=== PATIENT | female | born 1945 | race African-American/Black ===

== ENCOUNTER 2017-10-19 09:47 | Observation (INO) | payer MEDICARE ==
[2017-10-19 10:14] LABS: #Lymphocytes 1.2 thou/uL (1.20-3.40); #Monocytes 0.4 thou/uL (0.11-0.59); #Neutrophils 4.8 thou/uL (1.40-6.50); %Eosinophils 0.1 % (0.0-10.0); %Monocytes 6.7 % (0.0-10.0); %Neutrophils 74.2 % (42.0-75.0); Hemoglobin 12.1 g/dL (12.0-16.0); Mean Corpuscular HGB CONC 32.6 g/dL (32.0-36.0); Mean Corpuscular Hemoglobin 29.3 pg (27.0-31.0); Mean Platelet Volume 7.8 fL (7.4-10.4); Platelet Count 187 thou/uL (130-400); RBC Distribution Width 13.6 % (11.5-14.5); Red Blood Cell (RBC) Count 4.13 mill/uL (4.20-5.40); White Blood Cell (WBC) Count 6.5 thou/uL (4.8-10.8)
[2017-10-19] MEDS ORDERED: Nitroglycerin 2% Ointment 1 INCH/1 GM Packet ONE (10:19)
[2017-10-19 10:37] LABS: ALT (SGPT) 10 U/L (8-55); AST (SGOT) 16 U/L (5-34); Albumin 3.6 g/dL (3.4-4.8); Alkaline Phosphatase 99 U/L (40-150); Anion Gap 14 mmol/L (10-20); BUN (Urea Nitrogen) 10 mg/dL (9.8-20.1); Bilirubin, Total 0.5 mg/dL (0.2-1.2); CK (CPK) 45 U/L (29-168); Calc. Creatinine Clearance 0 mL/min (70-130); Calcium 8.9 mg/dL (7.8-10.44); Carbon Dioxide 29 mmol/L (23-31); Chloride 100 mmol/L (98-107); Estimated GFR-MDRD 78; Globulin 3.9 g/dL (2.4-3.5); Glucose 98 mg/dL (83-110); Lipase 17 U/L (8-78); Potassium 4.2 mmol/L (3.5-5.1); Protein, Total 7.5 g/dL (6.0-8.3); Sodium 139 mmol/L (136-145)
[2017-10-19 10:40] LABS: CKMB 0.8 ng/mL (0-6.6); Troponin I Less than 0.010 ng/mL (< 0.028)
[2017-10-19] MEDS ORDERED: Labetalol HCl 100 MG/20 ML VIAL ONE (11:35)
--- NOTE | 2017-10-19 12:08 | RAD ---
PORTABLE CHEST 1 VIEW: DATE: 10/19/17. TIME: 9:33 p.m. HISTORY: Chest pain and shortness of breath. FINDINGS: Comparison is made with the exam of 07/29/08. The heart is enlarged. No lobar consolidation, pneumothoraces, jody pulmonary edema, or large effus ions are seen. POS: H
[2017-10-19] MEDS ORDERED: Ondansetron HCl/PF 4 MG/2 ML Vial IVP PRN (13:13)
[2017-10-19] MEDS ORDERED: Ondansetron ODT 4 MG TAB SL PRN (13:13)
[2017-10-19 13:29] VITALS: BMI 47.7
[2017-10-19 14:06] LABS: Troponin I Less than 0.010 ng/mL (< 0.028)
[2017-10-19 16:36] LABS: Troponin I Less than 0.010 ng/mL (< 0.028)
[2017-10-19] MEDS: Acetaminophen 325 MG TAB PO PRN (16:54)
[2017-10-19] MEDS: Ibuprofen 800 MG TAB PO SCH (20:19)
[2017-10-19] MEDS: Potassium Chloride 10 MEQ TAB PO SCH (20:19)
[2017-10-19] MEDS ORDERED: Citalopram 20 MG TAB PO SCH (20:45)
[2017-10-19] MEDS ORDERED: Amitriptyline HCl 25 MG TAB PO SCH (21:00)
[2017-10-19] MEDS ORDERED: Prevnar 13-Val Conj/PF 0.5 ML SYRINGE IM ONE (21:00)
--- NOTE | 2017-10-19 21:07 | HP ---
CHIEF COMPLAINT: Chest pain. HISTORY OF PRESENT ILLNESS: This patient is a 71-year-old female who reports that for the last 2 we, she has been having worsening dyspnea on exertion which is now manifest if she does walk from one room to another. She also reports that even with minimal cough, she will also have significant dysp saeed. Associated with this, she has some stabbing chest pain in the center of her chest. She denies any radiation of the pain and believes that she is actually tender in chest wall. She denies any ass ociated nausea, in general, but reports a couple of times she did have nausea. She denies any lighth eadedness or associated palpitations. The patient was to see Dr. Dawson at [facility] on , but felt like she could not wait that long, so she presented to the emergency department here. In the ED, the patient's blood pressure was somewhat elevated. When she received nitroglycerin, her blood pressure came down and her symptoms were relieved. Of note, the patient reports that she had a similar situation couple of years ago and in 2015, she vargas d a heart catheterization performed in [place] and was told that it was completely negative. In fac t, she says the doctor told her children that if she were to that it would not be from her heart. REVIEW OF SYSTEMS: Notable for poor sleep in general, but the patient is better taking the amitripty line. She also reports a 50-pound weight gain in the last 4 months. She is not sure why that has oc curred. She also reports that she has loose stools 20-30 minutes after meals for the last 4 years or so. She has some chronic osteoarthritis pain mostly in her hips. She also reports some depression since February since she retired because she is mostly worried about money. She also indicates that s he has some mild bilateral abdominal pain, but she points toward her pannus area. Other than that, a 10-system review is negative. PAST MEDICAL HISTORY: Notable for osteoarthritis and hypertension. She also appears to have hypothy roidism based on her medication list. She also states she recently saw an eye doctor and was told th at he believes she has glaucoma and cataracts. PAST SURGICAL HISTORY: The patient had some type of abdominal surgery, but she is not exactly sure w hat. She states they had to "rebuild her organs" sounds like the colon was involved, but she says th ere was no resection. She also reports that she had a lap band placed in 2004, but it was not helpin g, and she had it removed in 2016. SOCIAL HISTORY: Patient is a nonsmoker, nondrinker, nondrug user. She is not . She currentl y lives with her daughter. Her daughter, Yamilka Conde would be her surrogate decision maker should that become necessary and she is a FULL CODE. FAMILY HISTORY: Father had emphysema. Mother of "old age." PHYSICAL EXAMINATION: VITAL SIGNS: Temperature 98.2, pulse 62, respirations 20, O2 sat 95% on 2 liters nasal cannula, BP i s 131/83. GENERAL APPEARANCE: Morbidly obese female. She is age appropriate. She is in no distress, very ple asant and cooperative. HEENT: PERRL. No OP lesions. NECK: Supple and symmetric without lymphadenopathy. HEART: Difficult to auscultation, but is regular rate and rhythm without murmurs. LUNGS: Somewhat difficult to auscultate. There are no wheezes, rales or crackles noted. She has fa ir air exchange. She does appear to take a bit more shallow breaths. ABDOMEN: Morbidly obese, soft, nontender, nondistended, positive bowel sounds. No masses, no organo megaly. EXTREMITIES: Have no edema. SKIN: Warm and dry. MUSCULOSKELETAL: This reveals very mild tenderness to palpation over the sternal area. LABORATORY AND DIAGNOSTIC STUDIES: EKG shows sinus rhythm with no evidence of ischemia. Chest x-ray shows mild cardiomegaly, but otherwise unremarkable. White count 6.5, hemoglobin 12.1, platelets 18 7. CMP is normal. IMPRESSION AND PLAN: 1. Dyspnea on exertion. 2. Chest pain. 3. Morbid obesity. 4. Hypertension. 5. Hypothyroidism. PLAN: The patient will be placed in observation. She will continue on telemetry. We will get latasha issa cardiac isoenzymes. I will also obtain an echocardiogram. I am not inclined to pursue a stress te sting. She apparently had a completely normal heart catheterization a couple of years ago. A little bit of cardiomegaly certainly would indicate the echocardiogram and based on the results of that salo issa determine further plan, but hopeful that if we can simply maintain the patient's blood pressure dwight quately, that will keep her symptoms controlled and she can follow up as an outpatient. We will also continue with her usual home medication regimen including her thyroid supplementation.
[2017-10-20] MEDS: Acetaminophen 325 MG TAB PO PRN (00:35)
[2017-10-20] MEDS ORDERED: HYDROcodone/Acetaminophen 10/325 mg Tablet PO PRN (01:00)
[2017-10-20] MEDS: Ibuprofen 800 MG TAB PO SCH ×2 (05:20→13:13)
[2017-10-20] MEDS ORDERED: Levothyroxine Sodium 112 MCG TAB PO SCH (06:00)
[2017-10-20] MEDS ORDERED: Levothyroxine Sodium 25 MCG TAB PO SCH (06:00)
[2017-10-20] MEDS: Potassium Chloride 10 MEQ TAB PO SCH (08:11)
[2017-10-20] MEDS ORDERED: Aspirin 81 mg Enteric Coated Tablet PO SCH (09:00)
[2017-10-20] MEDS ORDERED: HYDROcodone/Acetaminophen 10/325 mg Tablet PO SCH (09:00)
[2017-10-20] MEDS ORDERED: Non-Formulary Item 1 EACH (Levothyroxine Sodium [Levothyroxine Sodium] 137 MCG) PO SCH (09:00)
[2017-10-20] MEDS ORDERED: Furosemide 20 MG TAB PO SCH (09:00)
[2017-10-20] MEDS ORDERED: Bupropion 150 MG XL TAB PO SCH (09:00)
--- NOTE | 2017-10-20 11:43 | PDOC.PN ---
- Subjective Encounter Start Date: 10/20/17 Encounter Start Time: 11:41 Feels better today. Had a low SaO2 at 87 this morning. She says she had a dx of TANNER in [place]. Had a donated CPAP, but had to return it to the hospital when she moved here. Doesnt have the 180 dollars for the copay to get one. - Objective Resuscitation Status: Resuscitation Status FULL:Full Resuscitation Vital Signs & Weight: Vital Signs (12 hours) Temp Pulse Resp BP Pulse Ox 10/20/17 11:08 95 10/20/17 11:03 87 L 10/20/17 07:55 98.5 F 66 20 140/91 H 93 L 10/20/17 07:43 98.0 F 72 18 10/20/17 05:20 98.0 F 72 18 139/74 93 L 10/20/17 01:03 73 20 95 Weight Weight 287 lb 11.2 oz I&O: 10/19/17 10/20/17 10/21/17 06:59 06:59 06:59 Intake Total 180 360 Output Total 325 300 Balance -145 60 Result Diagrams: 10/19/17 10:03 10/19/17 10:03 Phys Exam - Physical Examination Constitutional: NAD Observed sleeping. Does have apnea. Mobidly obese. Respiratory: no wheezing, no rales, no rhonchi Cardiovascular: RRR, no significant murmur, no rub Gastrointestinal: soft, non-tender, no distention, positive bowel sounds Neurological: non-focal Psychiatric: normal affect Dx/Plan (1) ACUNA (dyspnea on exertion) Code(s): R06.09 - OTHER FORMS OF DYSPNEA Status: Acute (2) Chest pain Code(s): R07.9 - CHEST PAIN, UNSPECIFIED Status: Acute (3) TANNER (obstructive sleep apnea) Code(s): G47.33 - OBSTRUCTIVE SLEEP APNEA (ADULT) (PEDIATRIC) Status: Acute (4) Morbid obesity Code(s): E66.01 - MORBID (SEVERE) OBESITY DUE TO EXCESS CALORIES Status: Acute (5) Hypertension Code(s): I10 - ESSENTIAL (PRIMARY) HYPERTENSION Status: Acute (6) Hypothyroid Code(s): E03.9 - HYPOTHYROIDISM, UNSPECIFIED Status: Acute - Plan * Feels better. Had neg trops. Awaiting echo. If ok, will DC to have her follow up with Dr. Dawson at [facility]. She will need to discuss TANNER with her.
[2017-10-20 15:32] VITALS: BP 116/72; TEMP 97.8
[2017-10-20] MEDS ORDERED: Citalopram 20 MG TAB PO SCH (21:00)
== END 2017-10-20 17:09 | disposition home or self-care (01) ==
LOC: ERS 09:47 → 2SW 11:20
PROVIDERS: ADMIT Internal Medicine; ATTEND Internal Medicine
DX: R06.09 Other forms of dyspnea (principal); R07.9 Chest pain, unspecified; M19.90 Unspecified osteoarthritis, unspecified site; I10 Essential (primary) hypertension; E03.9 Hypothyroidism, unspecified; E66.01 Morbid (severe) obesity due to excess calories; Z68.42 Body mass index [BMI] 45.0-49.9, adult; Z79.82 Long term (current) use of aspirin; Z79.899 Other long term (current) drug therapy
CPT/HCPCS: 71045; 80053; 82550; 82553; 83690; 83880; 84484 ×2; 85025; 93005; 93306; 94640 ×2; 96374; 99285; G0378 ×2; 36415; J7620

== ENCOUNTER 2018-06-28 12:57 | Inpatient (IN) | payer MEDICARE, OTHER ==
[2018-06-28 14:04] LABS: #Lymphocytes 1.2 thou/uL (1.20-3.40); #Monocytes 0.3 thou/uL (0.11-0.59); #Neutrophils 4.2 thou/uL (1.40-6.50); %Basophils 0.5 % (0.0-1.0); %Eosinophils 0.2 % (0.0-10.0); %Lymphocytes 20.5 % (21.0-51.0); %Monocytes 5.1 % (0.0-10.0); %Neutrophils 73.7 % (42.0-75.0); Hemoglobin 12.6 g/dL (12.0-16.0); Mean Corpuscular HGB CONC 30.7 g/dL (32.0-36.0); Mean Corpuscular Hemoglobin 28.5 pg (27.0-31.0); Mean Corpuscular Volume 93.1 fL (78.0-98.0); Mean Platelet Volume 8.2 fL (7.4-10.4); Platelet Count 216 thou/uL (130-400); RBC Distribution Width 14.9 % (11.5-14.5); Red Blood Cell (RBC) Count 4.41 mill/uL (4.20-5.40); White Blood Cell (WBC) Count 5.7 thou/uL (4.8-10.8)
--- NOTE | 2018-06-28 14:10 | RAD ---
AP view chest. HISTORY: Shortness of breath for 2 days. AP view chest obtained. Comparison made to previous exam from 10/19/2017. AP view chest demonstrates mild pulmonary vascular congestion. Areas of patchy density seen in both lung bases more pronounced on the right than on the left lung ba se. These may represent areas of bibasilar pneumonia. IMPRESSION: Newly developed areas of airspace opacities in the lung bases concerning for pneumonia.
[2018-06-28 14:24] LABS: ALT (SGPT) 10 U/L (8-55); AST (SGOT) 14 U/L (5-34); Albumin 3.5 g/dL (3.4-4.8); Alkaline Phosphatase 80 U/L (40-150); Anion Gap 11 mmol/L (10-20); BUN (Urea Nitrogen) 11 mg/dL (9.8-20.1); Bilirubin, Total 0.4 mg/dL (0.2-1.2); Calc. Creatinine Clearance 0 mL/min (70-130); Calcium 9.9 mg/dL (7.8-10.44); Carbon Dioxide 37 mmol/L (23-31); Chloride 99 mmol/L (98-107); Estimated GFR-MDRD 61; Globulin 3.8 g/dL (2.4-3.5); Glucose 118 mg/dL (83-110); Protein, Total 7.3 g/dL (6.0-8.3); Sodium 143 mmol/L (136-145)
[2018-06-28] MEDS ORDERED: cefTRIAXone\\ROCEPHIN 2 GM VIAL ONE (14:26)
--- NOTE | 2018-06-28 15:44 | CT ---
Contrast-enhanced CTA chest. HISTORY: Shortness of breath worse when walking. Contrast-enhanced CTA chest performed. 2-D and 3-D reconstruction images performed on an independent 3-D workstation. No evidence of filling defects seen in the pulmonary arteries to suggest pulmonary emboli. No evidence of mediastinal, axillary or hilar lymphadenopathy seen. No definite evidence of pulmonary parenchymal lesion seen. IMPRESSION: No evidence of pulmonary emboli.
[2018-06-28] MEDS ORDERED: ISOVUE-370 76%-LOCM 1 ML ONE (16:52)
[2018-06-28] MEDS ORDERED: Azithromycin 500 MG VIAL ONE (17:02)
[2018-06-28 18:09] LABS: Troponin I 0.018 ng/mL (< 0.028)
[2018-06-28] MEDS ORDERED: Acetaminophen 325 MG TAB PO PRN (18:17)
[2018-06-28 18:33] VITALS: BMI 48.4
[2018-06-28 19:21] LABS: Lactic Acid 1.4 mmol/L (0.5-2.2)
--- NOTE | 2018-06-28 21:17 | HP ---
PRIMARY CARE PROVIDER: Dr. Alicia Dawson at [facility]. CHIEF COMPLAINT: Shortness of breath. HISTORY OF PRESENT ILLNESS: This is a 72-year-old female, who presents to [facility] Emergency Department complaining of approximate 2-3 day history of increasing shortness of breath and dyspnea on exertion with dry cough. The patient with a known history of prior pulmonary embolus, on chronic anticoagulation with Eliquis as well as a history of prior oxygen use up to 2 L/minute by nasal cannula recently in the last several months prior to this evaluation. The patient denies any specific fever, chills, exposure history, or family members with similar symptoms. The patient denies any prominent history of seasonal allergies. The patient does admit to a dry cough. No hemoptysis and no chest pain. The patient states she recently relocated from the [facility] where she was using oxygen at home, but states she had to turn the oxygen equipment back in when she moved out of the area. The patient states she has not established with setting up a new home oxygen and presents with worsening shortness of breath. The patient denies taking any specific home remedies, but states she has been compliant with her medication regimen. However, states that she was placed on Eliquis in the last 1-1/2 months, but apparently ran out of the medication about one week prior to this evaluation. The patient admits to some swelling of her lower extremities, but states this is chronic. The patient states that she normally is short of breath when she lays on her back and does sleep propped up on several pillows. In the emergency room, the patient underwent general evaluation including chest imaging showing airspace opacities in the lung bases concerning for possible infiltrate. The patient underwent CT imaging of the chest and was ruled out for pulmonary embolus. The patient received intravenous normal saline x1 L in addition to azithromycin and Rocephin as well as DuoNeb therapy. PAST MEDICAL HISTORY: 1. Morbid obesity. 2. Hypertension. 3. Hypothyroidism. 4. Obstructive sleep apnea. 5. Chronic hypoxic respiratory failure, on previous home oxygen at 2 L/minute by nasal cannula. 6. Pulmonary embolus, on chronic anticoagulation with Eliquis. 7. Osteoarthritis. PAST SURGICAL HISTORY: 1. Status post lap band. 2. Status post colon resection. 3. Status post lap band reversal. 4. Status post carotid surgery. 5. Status post hernia repair. 6. Status post hysterectomy. CURRENT MEDICATIONS: Based on recent hospitalization in 2018. 1. Amitriptyline 25 mg p.o. at bedtime. 2. Enteric-coated aspirin 81 mg p.o. daily. 3. Bupropion 300 mg p.o. daily. 4. Citalopram 40 mg p.o. at bedtime. 5. Nexium 20 mg p.o. daily. 6. Lasix 20 mg p.o. daily. 7. Ibuprofen 800 mg p.o. daily p.r.n. 8. Levothyroxine 137 mcg p.o. daily. 9. Metoprolol succinate 50 mg p.o. b.i.d. 10. Potassium chloride 10 mEq p.o. b.i.d. ALLERGIES: PREGABALIN. FAMILY HISTORY: Father with emphysema. SOCIAL HISTORY: The patient relocated from [place] to the [facility]. No current alcohol, tobacco, or illicit drug use. Single. Resides with her daughter. REVIEW OF SYSTEMS: CONSTITUTIONAL: Negative for weight loss or gain, ability to conduct usual activities. SKIN: Negative for rash, itching. EYES: Negative for double vision, pain. ENT/MOUTH: Negative for nose bleeding, neck stiffness, pain, tenderness. CARDIOVASCULAR: Negative for palpitations, dyspnea on exertion, orthopnea. RESPIRATORY: Negative for shortness of breath, wheezing, cough, hemoptysis, fever or night sweats. GASTROINTESTINAL: Negative for poor appetite, abdominal pain, heartburn, nausea, vomiting, constipation, or diarrhea. GENITOURINARY: Negative for urgency, frequency, dysuria, nocturia. MUSCULOSKELETAL: Negative for pain, swelling. NEUROLOGIC/PSYCHIATRIC: Negative for anxiety, depression. ALLERGY/IMMUNOLOGIC: Negative for skin rash, bleeding tendency. Otherwise, negative except as stated per HPI. PHYSICAL EXAMINATION: VITAL SIGNS: On admission, blood pressure 121/75, pulse 107, respiratory rate 25, temperature 97.9 degrees Fahrenheit, O2 saturation 93% on room air. GENERAL APPEARANCE: This is a 72-year-old female, alert and oriented x3, pleasant, responsive, in no acute distress. HEENT: Pupils are equal, round, reactive to light and accommodation. Extraocular muscles are intact. No scleral icterus. No conjunctival injection. Nares patent. OP is clear. NECK: Supple. No cervical adenopathy. No thyromegaly. No carotid bruits. No JVD appreciated. Cervical spine with full active and passive range of motion. No meningeal signs noted. CHEST: Diminished breath sounds in the bases bilaterally. Expiratory wheezing bilaterally. CARDIOVASCULAR: S1 and S2 with tachycardia. No murmur, rub, or gallop appreciated. ABDOMEN: Obese, soft, nontender, and nondistended. Bowel sounds are positive in all 4 quadrants. No palpable mass. Landmarks are difficult to palpate due to the patient's body habitus. EXTREMITIES: Warm and dry with fair turgor. Pitting edema to the proximal shins bilaterally. Pulses palpable distally at the dorsalis pedis, posterior tibial, and popliteal arteries bilaterally. Capillary refill less than 2 seconds. NEUROLOGIC: Cranial nerves 2 through 12 are grossly intact. No focal or lateralizing signs appreciated. PERTINENT LAB AND X-RAY FINDINGS: Sodium 143, potassium 4.0, chloride 99, CO2 of 37, BUN 11, creatinine 1.06, estimated GFR 61, glucose 118, lactic acid level 2.3, calcium 9.9. LFTs within normal limits. BNP 35.3. CBC showed a white blood cell count of 5.7, hemoglobin 12.6, hematocrit 41, platelet count 216. D-dimer 0.53. Influenza A and B antigen dated 06/28/2018, negative. Portable chest x-ray dated 06/28/[address] angiogram of the chest dated 06/28/2018 showed no evidence for pulmonary embolus. EKG dated 06/28/2018 by my interpretation shows sinus tachycardia, heart rates in the low 100s. Normal R-wave progression noted in precordial leads. Normal axis. No acute ST-T wave changes appreciated. ASSESSMENT AND PLAN: 1. Acute hypoxic respiratory failure. Questionable etiology. Suspect component of obesity hypoventilation syndrome in conjunction with bibasilar pneumonia. Continue oxygen supplementation to maintain O2 saturation greater than or equal to 90%. See #2 below for further management. The patient may need evaluation for home oxygen prior to discharge. 2. Bibasilar pneumonia. Questionable infiltrate on chest imaging. We will continue empiric antibiotic therapy with Levaquin 750 mg IV daily. Add DuoNeb q.4 hours. Blood cultures x2 pending. 3. Pulmonary embolism. Questionable history of pulmonary embolus on previous Eliquis. No current evidence of pulmonary embolus on CT angiogram of the chest. 4. Morbid obesity. We will offer dietary recommendations and low-fat diet during the hospital course. 5. Hypothyroidism. Resume levothyroxine 137 mcg p.o. daily. 6. Prophylaxis. SCDs while in bed. Pepcid 20 mg p.o. b.i.d.. 7. Code status is full. Surrogate medical decision maker is the patient's daughter. Job ID: [id number]
[2018-06-28 22:43] LABS: Troponin I 0.016 ng/mL (< 0.028)
[2018-06-29] MEDS ORDERED: Ondansetron ODT 4 MG TAB PO PRN (03:41)
[2018-06-29] MEDS ORDERED: Benzonatate 100 MG CAP PO PRN (03:41)
[2018-06-29] MEDS ORDERED: Acetaminophen 500 MG TAB PO PRN (03:41)
[2018-06-29] MEDS ORDERED: Ondansetron PF 4 MG/2 ML Vial IVP PRN (03:41)
[2018-06-29] MEDS ORDERED: hydrALAZINE 20 MG/ML VIAL SLOW IVP PRN (03:41)
[2018-06-29] MEDS ORDERED: Famotidine 20 MG TAB PO SCH (04:00)
[2018-06-29] MEDS ORDERED: Amitriptyline HCl 25 MG TAB PO SCH (04:00)
[2018-06-29] MEDS ORDERED: Potassium Chloride 10 MEQ TAB PO SCH (04:00)
[2018-06-29] MEDS ORDERED: Citalopram 20 MG TAB PO SCH (04:00)
[2018-06-29] MEDS: Levothyroxine Sodium 25 MCG TAB PO SCH (05:32)
[2018-06-29] MEDS: Levothyroxine Sodium 112 MCG TAB PO SCH (05:33)
[2018-06-29] MEDS: Aspirin 81 mg Enteric Coated Tablet PO SCH (07:52)
[2018-06-29] MEDS: Furosemide 20 MG TAB PO SCH (07:52)
[2018-06-29] MEDS: Bupropion 150 MG XL TAB PO SCH (07:53)
[2018-06-29] MEDS ORDERED: Non-Formulary Item 1 EACH (Levothyroxine Sodium [Levothyroxine Sodium] 137 MCG) PO SCH (09:00)
[2018-06-29] MEDS: Potassium Chloride 10 MEQ TAB PO SCH (16:29)
--- NOTE | 2018-06-29 18:32 | PDOC.PN ---
- Subjective Encounter Start Date: 06/29/18 Encounter Start Time: 18:30 Subjective: f/u for acute hypoxic resp failure and ?bibasilar PNA on Levaquin. -: Feeling much better today and less SOB. - Objective Resuscitation Status - Order Detail: 06/28/18 16:17 Resuscitation Status Routine Resuscitation Status: FULL: Full Resuscitation MAR Reviewed: Yes Vital Signs & Weight: Vital Signs (12 hours) Temp Pulse Resp BP Pulse Ox 06/29/18 16:05 72 16 06/29/18 11:47 70 16 06/29/18 07:53 100 06/29/18 07:41 97.6 F 73 18 136/83 100 Weight Weight 291 lb 6 oz I&O: 06/28/18 06/29/18 06/30/18 06:59 06:59 06:59 Intake Total 400 Balance 400 Result Diagrams: 06/28/18 13:36 06/28/18 13:36 Additional Labs: Microbiology 06/28/18 14:25 Nasal swab Influenza Types A,B Direct EIA - Final 06/28/18 14:35 Venous blood - Right Arm Blood Culture - Preliminary Specimen has been received and culture in progress. No Growth to date. 06/28/18 14:30 Venous blood - Left Hand Blood Culture - Preliminary Specimen has been received and culture in progress. No Growth to date. Laboratory Tests 06/28/18 06/28/18 06/28/18 13:36 14:35 18:56 Lactic Acid 2.3 H 1.4 B-Natriuretic Peptide 35.3 Radiology Reviewed by me: Yes (PCXR - bibasilar infiltrates) Phys Exam - Physical Examination Constitutional: NAD HEENT: PERRLA, sclera anicteric, oral pharynx no lesions Neck: no nodes, no JVD, supple, full ROM S1, S2 Cardiovascular: RRR, no significant murmur, no rub, gallop Gastrointestinal: soft, non-tender, no distention, positive bowel sounds Musculoskeletal: pulses present, edema present Neurological: normal sensation, moves all 4 limbs Psychiatric: A&O x 3 Skin: normal turgor, cap refill <2 seconds Dx/Plan (1) Acute respiratory failure with hypoxia Code(s): J96.01 - ACUTE RESPIRATORY FAILURE WITH HYPOXIA Status: Acute Comment: Stabilizing on O2 supplementation, will likely need outpt O2 setup for d/c (2) Bilateral pneumonia Code(s): J18.9 - PNEUMONIA, UNSPECIFIED ORGANISM Status: Acute Comment: Suspected given bibasilar infiltrates, continue Levaquin, Duonebs, O2 (3) Hypertension Code(s): I10 - ESSENTIAL (PRIMARY) HYPERTENSION Status: Chronic Qualifiers: Hypertension type: essential hypertension Qualified Code(s): I10 - Essential (primary) hypertension Comment: Continue Metoprolol 50mg BID (4) Hypothyroid Code(s): E03.9 - HYPOTHYROIDISM, UNSPECIFIED Status: Chronic Comment: Continue Levothyroxine 137mcg daily (5) Morbid obesity Code(s): E66.01 - MORBID (SEVERE) OBESITY DUE TO EXCESS CALORIES Status: Chronic Comment: Low-fat diet - Plan continue antibiotics, social media marketing specialist, respiratory therapy, out of bed/ambulate , DVT proph w/SCDs Stable currently -: Continue O2 supplementation, likel will need home O2 -: Consider referral to Pulmonology for outpt evaluation, ?PFT's -: Continue Levaquin -: Likely home 06/30/18 * .
[2018-06-29] MEDS ORDERED: Loperamide HCl 2 MG CAP PO PRN (19:55)
[2018-06-29] MEDS: Amitriptyline HCl 25 MG TAB PO SCH (20:28)
[2018-06-29] MEDS: Famotidine 20 MG TAB PO SCH (20:28)
[2018-06-29] MEDS: Citalopram 20 MG TAB PO SCH (20:28)
[2018-06-30] MEDS: Levothyroxine Sodium 112 MCG TAB PO SCH (05:30)
[2018-06-30] MEDS: Levothyroxine Sodium 25 MCG TAB PO SCH (05:30)
[2018-06-30 06:27] LABS: Hemoglobin 10.1 g/dL (12.0-16.0); Mean Corpuscular HGB CONC 30.9 g/dL (32.0-36.0); Mean Corpuscular Hemoglobin 28.8 pg (27.0-31.0); Mean Platelet Volume 8.1 fL (7.4-10.4); Platelet Count 189 thou/uL (130-400); RBC Distribution Width 14.9 % (11.5-14.5); Red Blood Cell (RBC) Count 3.53 mill/uL (4.20-5.40); White Blood Cell (WBC) Count 7.2 thou/uL (4.8-10.8)
[2018-06-30 06:28] LABS: Hypochromia SLIGHT = 6-15 cells (100X) (0-5/hpf); Lymphocytes 12 % (21-51); MDiff Complete? YES; Monocytes 3 % (0-10); Neutrophil 85 % (42-75); Platelet Morphology Comment Appears Adequate
[2018-06-30 06:43] LABS: Anion Gap 10 mmol/L (10-20); BUN (Urea Nitrogen) 12 mg/dL (9.8-20.1); Calc. Creatinine Clearance 107 mL/min (70-130); Calcium 8.9 mg/dL (7.8-10.44); Carbon Dioxide 32 mmol/L (23-31); Chloride 101 mmol/L (98-107); Estimated GFR-MDRD 69; Glucose 99 mg/dL (83-110); Potassium 4.3 mmol/L (3.5-5.1); Sodium 139 mmol/L (136-145)
[2018-06-30] MEDS: Potassium Chloride 10 MEQ TAB PO SCH ×2 (08:14→17:35)
[2018-06-30] MEDS: Bupropion 150 MG XL TAB PO SCH (08:14)
[2018-06-30] MEDS: Furosemide 20 MG TAB PO SCH (08:14)
[2018-06-30] MEDS: Famotidine 20 MG TAB PO SCH ×2 (08:15→20:25)
[2018-06-30] MEDS: Aspirin 81 mg Enteric Coated Tablet PO SCH (08:15)
--- NOTE | 2018-06-30 11:40 | PDOC.PN ---
- Subjective Encounter Start Date: 06/30/18 Encounter Start Time: 11:30 Subjective: Patient reports feeling better on O2. Hx of PE started on Elliquis over one -: month ago, ran out 1 week ago, hasn't gotten refilled yet. O2 sats ok at -: rest but dropping with ambulation. - Objective Resuscitation Status - Order Detail: 06/28/18 16:17 Resuscitation Status Routine Resuscitation Status: FULL: Full Resuscitation MAR Reviewed: Yes Vital Signs & Weight: Vital Signs (12 hours) Temp Pulse Resp BP Pulse Ox 06/30/18 11:37 71 16 100 06/30/18 08:05 70 18 100 06/30/18 08:00 100 06/30/18 07:00 97.9 F 70 18 112/78 98 Weight Weight 291 lb 6 oz I&O: 06/29/18 06/30/18 07/01/18 06:59 06:59 06:59 Intake Total 400 1180 Balance 400 1180 Result Diagrams: 06/30/18 05:58 06/30/18 05:58 Phys Exam - Physical Examination Constitutional: NAD HEENT: moist MMs Respiratory: no wheezing, no rales, no rhonchi Cardiovascular: RRR Gastrointestinal: soft, positive bowel sounds Neurological: non-focal Psychiatric: normal affect, A&O x 3 Dx/Plan (1) Acute respiratory failure with hypoxia Code(s): J96.01 - ACUTE RESPIRATORY FAILURE WITH HYPOXIA Status: Acute Comment: Stabilizing on O2 supplementation, will likely need outpt O2 setup for d/c (2) Bilateral pneumonia Code(s): J18.9 - PNEUMONIA, UNSPECIFIED ORGANISM Status: Ruled-out Qualifiers: Lung location: lower lobe of lung Comment: bibasilar infiltrates on CXR but CT showed no infiltrates, normal WBC. Don't see evidence of pneumonia at this time, possibly progression of Obesity hypoventilation syndrome. (3) TANNER (obstructive sleep apnea) Code(s): G47.33 - OBSTRUCTIVE SLEEP APNEA (ADULT) (PEDIATRIC) Status: Chronic (4) Hypertension Code(s): I10 - ESSENTIAL (PRIMARY) HYPERTENSION Status: Chronic Qualifiers: Hypertension type: essential hypertension Qualified Code(s): I10 - Essential (primary) hypertension Comment: Continue Metoprolol 50mg BID (5) Hypothyroid Code(s): E03.9 - HYPOTHYROIDISM, UNSPECIFIED Status: Chronic Comment: Continue Levothyroxine 137mcg daily (6) Morbid obesity Code(s): E66.01 - MORBID (SEVERE) OBESITY DUE TO EXCESS CALORIES Status: Chronic Comment: Low-fat diet - Plan cont current plan of care, continue antibiotics, DVT proph w/SCDs unsuccessful off O2, will try to arrange home O2 tomorrow * . - Discharge Day Encounter end time: 11:45
--- NOTE | 2018-06-30 15:34 | PQF ---
CLINICAL DOCUMENTATION IMPROVEMENT CLARIFICATION FORM: ICD-10 Updated PLEASE DO AN ADDENDUM TO THE PROGRESS NOTE WITH ANY DOCUMENTATION UPDATES OR ADDITIONS AND CARRY THROUGH TO DC SUMMARY. THANK YOU. DATE: 06/30/18 ATTN: DR. CHAVIRA Please exercise your independent, professional judgment in responding to the clarification form. Clinical indicators are provided on the bottom of this form for your review Please check appropriate box(s) to clarify if the following diagnosis has been ruled in or ruled out: "SEPSIS" [ X ] Ruled in diagnosis [ ] Continue to treat [ X ] Resolved [ ] Ruled out diagnosis [ ] Cannot rule out diagnosis [ ] Other diagnosis [ ] Unable to determine In addition, please specify: Present on Admission (POA): [ X ] Yes [ ] No [ ] Unable to determine For continuity of documentation, please document condition throughout progress notes and discharge summary. Thank You. CLINICAL INDICATORS - SIGNS / SYMPTOMS / LABS ER NOTE: "SEPSIS" PULSE 118 RR 27 LACTIC ACID 06/28: 2.3 RISKS: PNEUMONIA TREATMENT: IV FLUIDS (ER) IV AZITHROMYCIN (ER) IV ROCEPHIN (ER) IV LEVAQUIN () BLOOD CULTURES (This form is maintained as a part of the permanent medical record) 2014 [employer] All Rights Reserved [employer]TD[employer]
[2018-06-30] MEDS: Apixaban 5 MG TAB PO SCH (20:24)
[2018-06-30] MEDS: Citalopram 20 MG TAB PO SCH (20:24)
[2018-06-30] MEDS: Amitriptyline HCl 25 MG TAB PO SCH (20:24)
[2018-07-01] MEDS: Levothyroxine Sodium 25 MCG TAB PO SCH (05:39)
[2018-07-01] MEDS: Levothyroxine Sodium 112 MCG TAB PO SCH (05:39)
[2018-07-01 07:49] VITALS: TEMP 98
--- NOTE | 2018-07-01 08:31 | PDOC.PN ---
- Subjective Encounter Start Date: 07/01/18 Encounter Start Time: 10:00 Subjective: Patient feeling better. Still severely SOB with any ambulation off O2. No -: chest pain. No fever. - Objective Resuscitation Status - Order Detail: 06/28/18 16:17 Resuscitation Status Routine Resuscitation Status: FULL: Full Resuscitation MAR Reviewed: Yes Vital Signs & Weight: Vital Signs (12 hours) Temp Pulse Resp BP Pulse Ox 07/01/18 07:46 98.0 F 75 16 115/87 98 07/01/18 06:51 85 18 100 Weight Weight 291 lb 6 oz I&O: 06/30/18 07/01/18 07/02/18 06:59 06:59 06:59 Intake Total 1180 1260 Balance 1180 1260 Result Diagrams: 06/30/18 05:58 06/30/18 05:58 Phys Exam - Physical Examination Constitutional: NAD morbidly obese HEENT: moist MMs Respiratory: no wheezing, no rales, no rhonchi Cardiovascular: RRR Gastrointestinal: soft, positive bowel sounds Neurological: non-focal, moves all 4 limbs Psychiatric: normal affect, A&O x 3 Dx/Plan (1) Acute respiratory failure with hypoxia Code(s): J96.01 - ACUTE RESPIRATORY FAILURE WITH HYPOXIA Status: Acute Comment: Stabilizing on O2 supplementation, will likely need outpt O2 setup for d/c (2) COPD (chronic obstructive pulmonary disease) Status: Chronic Comment: with chronic hypoxia especially with ambulation, desated to 80% yesterday during ambulation and very SOB, will need home oxygen ( she has been on this before but returned it when she move to [place]) (3) TANNER (obstructive sleep apnea) Code(s): G47.33 - OBSTRUCTIVE SLEEP APNEA (ADULT) (PEDIATRIC) Status: Chronic (4) Hypertension Code(s): I10 - ESSENTIAL (PRIMARY) HYPERTENSION Status: Chronic Qualifiers: Hypertension type: essential hypertension Qualified Code(s): I10 - Essential (primary) hypertension Comment: Continue Metoprolol 50mg BID (5) Hypothyroid Code(s): E03.9 - HYPOTHYROIDISM, UNSPECIFIED Status: Chronic Comment: Continue Levothyroxine 137mcg daily (6) Morbid obesity Code(s): E66.01 - MORBID (SEVERE) OBESITY DUE TO EXCESS CALORIES Status: Chronic Comment: Low-fat diet - Plan cont current plan of care arrange home O2 and then d/c * . - Discharge Day Encounter end time: 10:30
[2018-07-01] MEDS: Aspirin 81 mg Enteric Coated Tablet PO SCH (08:49)
[2018-07-01] MEDS: Bupropion 150 MG XL TAB PO SCH (08:49)
[2018-07-01] MEDS: Potassium Chloride 10 MEQ TAB PO SCH (08:49)
[2018-07-01] MEDS: Famotidine 20 MG TAB PO SCH (08:49)
[2018-07-01] MEDS: Apixaban 5 MG TAB PO SCH (08:49)
[2018-07-01] MEDS: Furosemide 20 MG TAB PO SCH (08:50)
[2018-07-01 08:52] VITALS: BP 131/87
--- NOTE | 2018-07-02 04:21 | DIS ---
DATE OF ADMISSION: 06/28/2018 DATE OF DISCHARGE: 07/01/2018 PRIMARY CARE PHYSICIAN: Alicia Dawson. REASON FOR ADMISSION: Possible pneumonia and sepsis. DIAGNOSES AT DISCHARGE: 1. Acute on chronic respiratory failure with hypoxia. 2. Chronic obstructive pulmonary disease with chronic hypoxia, especially with ambulation. 3. Obstructive sleep apnea. 4. Hypertension. 5. Hypothyroidism. 6. Morbid obesity. 7. Sepsis, resolved. 8. Pneumonia, ruled out. PROCEDURES: CT angio of the chest with and without contrast showing no evidence of pulmonary embolism. No evidence of pulmonary parenchymal lesions. CONSULTATIONS: None. SUMMARY OF HOSPITAL COURSE: This is a 72-year-old female, who previously lived out of [facility], had history of being on chronic home oxygen. However, she turned out and when she came to [place], she has had significant shortness of breath with ambulation ever since. The patient presented to the emergency room with increasing shortness of breath and dyspnea on exertion with dry cough for 2 to 3 days. She also was noted to have history of previous pulmonary embolism diagnosed within the last couple of months on Eliquis, but ran out about a week before admission. The patient was evaluated in the emergency room. She had elevated D-dimer, but negative CT angio of the chest. She was given antibiotics, nebulizer treatments, and oxygen. The patient improved during her hospitalization. Review of her CT scan showed no evidence for infiltrates and her white blood cell count remained normal during her hospitalization, so we have ruled out pneumonia. Her respiratory difficulties seem to be related to COPD and obstructive sleep apnea, possibly worsened by her history of pulmonary embolism. She does not have any currently on her CT scan, however, she may have some residual lung damage from those. We have continued her blood thinners in the hospital. The patient was evaluated on the day of discharge when she was having no evidence of infection or other acute exacerbating conditions. She was noted to have oxygen saturations dropped to 82% with minimal ambulation, off oxygen, so she is being sent home with 2 L of home oxygen and is to follow up with Pulmonary as an outpatient. DISCHARGE MANAGEMENT: Discharged home. ACTIVITY: As tolerated. DIET: Healthy heart low-sodium diet. EQUIPMENT AND SUPPLIES: Nebulizer and oxygen. DISCHARGE MEDICATIONS: 1. Levaquin 750 mg daily, one tablet to complete her course of antibiotics. 2. DuoNeb every 4 hours as needed for shortness of breath, coughing, wheezing, 30 nebulizer treatments and nebulizer machine dispensed. 3. Bupropion XL 300 mg daily. 4. Continue Eliquis 5 mg twice a day. 5. Amitriptyline 25 mg at night. 6. Aspirin 81 mg daily. 7. Citalopram 40 mg at night. 8. Furosemide 20 mg daily. 9. Metoprolol succinate 50 mg twice a day. 10. Potassium chloride 10 mEq twice a day. 11. Nexium 20 mg daily. 12. Hydrocodone as needed. 13. Ibuprofen as needed. 14. Levothyroxine 137 mcg daily. 15. MiraLAX 17 g daily. The patient is to follow up with Dr. Dawson in 7 days and she is to establish care with Dr. Ibarra, bone process operator. She is to call his office and follow up in the next 1 to 2 weeks. Arranging the details of this discharge took 35 minutes. Job ID: [id number]
== END 2018-07-01 16:52 | disposition home or self-care (01) | DRG 871 ==
LOC: ERS 12:57 → T4-B 15:19
PROVIDERS: ADMIT Family Medicine; ATTEND Family Medicine
DX: A41.9 Sepsis, unspecified organism (principal); J96.21 Acute and chronic respiratory failure with hypoxia; Z68.42 Body mass index [BMI] 45.0-49.9, adult; E03.9 Hypothyroidism, unspecified; K21.9 Gastro-esophageal reflux disease without esophagitis; F41.9 Anxiety disorder, unspecified; E66.01 Morbid (severe) obesity due to excess calories; I11.0 Hypertensive heart disease with heart failure; G47.33 Obstructive sleep apnea (adult) (pediatric); J44.9 Chronic obstructive pulmonary disease, unspecified; M19.90 Unspecified osteoarthritis, unspecified site; Z79.01 Long term (current) use of anticoagulants; Z90.710 Acquired absence of both cervix and uterus; Z86.711 Personal history of pulmonary embolism; Z88.8 Allergy status to other drugs, medicaments and biological substances; Z79.899 Other long term (current) drug therapy
CPT/HCPCS: 36415; 71045; 71275; 80048; 80053; 83605; 83880; 84484; 85007; 85025; 85027; 85379; 87040; 87804; 93005; 94640; 94760; 96365; 96366; 96367; J0456; J0696; J1956; J7620; Q9966

== ENCOUNTER 2019-11-03 15:11 | Emergency (ER) | payer OTHER ==
--- NOTE | 2019-11-03 15:57 | RAD ---
Chest AP view INDICATION: History of cough and cold COMPARISON: Prior exam dated June 28, 2018 FINDINGS: Lungs: There is stable elevation the right hemidiaphragm with mild right basilar atelectasis. No con solidation is evident. Cardiac silhouette: Mild cardiomegaly is stable Pulmonary vasculature: Normal Pleural spaces: No pleural effusion or pneumothorax is demonstrated. Upper abdomen: Surgical clips within the left upper quadrant abdomen are stable. Osseous structures: There is scattered degenerative and osteoarthritic change present. Additional findings: None. IMPRESSION: No acute cardiopulmonary abnormality.
[2019-11-03 17:04] LABS: #Lymphocytes 1.5 thou/uL (1.20-3.40); #Monocytes 0.6 thou/uL (0.11-0.59); #Neutrophils 5.4 thou/uL (1.40-6.50); %Basophils 0.1 % (0.0-1.0); %Eosinophils 0.1 % (0.0-10.0); %Lymphocytes 19.8 % (21.0-51.0); %Monocytes 8.3 % (0.0-10.0); %Neutrophils 71.7 % (42.0-75.0); Hemoglobin 12.2 g/dL (12.0-16.0); Mean Corpuscular HGB CONC 31.2 g/dL (32.0-36.0); Mean Corpuscular Hemoglobin 27.2 pg (27.0-31.0); Mean Platelet Volume 7.8 fL (7.4-10.4); Platelet Count 181 thou/uL (130-400); RBC Distribution Width 14.2 % (11.5-14.5); Red Blood Cell (RBC) Count 4.49 mill/uL (4.20-5.40); White Blood Cell (WBC) Count 7.6 thou/uL (4.8-10.8)
[2019-11-03 17:58] LABS: ALT (SGPT) Less than 7 U/L (8-55); AST (SGOT) 11 U/L (5-34); Albumin 3.6 g/dL (3.4-4.8); Alkaline Phosphatase 93 U/L (40-110); Anion Gap 18 mmol/L (10-20); BUN (Urea Nitrogen) 14 mg/dL (9.8-20.1); Bilirubin, Total 0.5 mg/dL (0.2-1.2); Calc. Creatinine Clearance 0 mL/min (70-130); Calcium 8.7 mg/dL (7.8-10.44); Carbon Dioxide 22 mmol/L (23-31); Chloride 105 mmol/L (98-107); Estimated GFR-MDRD 63; Globulin 3.5 g/dL (2.4-3.5); Glucose 89 mg/dL (83-110); Potassium 4.6 mmol/L (3.5-5.1); Protein, Total 7.1 g/dL (6.0-8.3); Sodium 140 mmol/L (136-145)
[2019-11-04 14:05] LABS: SARS-CoV-2 MS2 Positive; SARS-CoV-2 N Gene Negative; SARS-CoV-2 S Gene Negative; SARS-CoV-2 by NAA Not Detected (NotDetected); SARS-CoV-2 orf1ab Negative
--- NOTE | 2019-11-07 16:06 | EKG ---
Test Reason : Blood Pressure : / mmHG Vent. Rate : 084 BPM Atrial Rate : 084 BPM P-R Int : 176 ms QRS Dur : 086 ms QT Int : 368 ms P-R-T Axes : 095 035 003 degrees QTc Int : 434 ms Normal sinus rhythm Confirmed by JOSE RAMON MACIAS DO ([id number]), avid editor SURINDER CERVANTES ([id number]) on 11/07/2019 4:06:06 PM Referred By: Confirmed By:JOSE RAMON MACIAS DO
== END 2019-11-03 18:15 | disposition home or self-care (01) ==
LOC: ERS 15:11
DX: J39.9 Disease of upper respiratory tract, unspecified (principal); R06.2 Wheezing; Z20.828 Contact with and (suspected) exposure to other viral communicable diseases; E03.9 Hypothyroidism, unspecified; K21.9 Gastro-esophageal reflux disease without esophagitis; I10 Essential (primary) hypertension; F41.9 Anxiety disorder, unspecified; Z79.82 Long term (current) use of aspirin; Z79.899 Other long term (current) drug therapy
CPT/HCPCS: 36415; 71045; 80053; 85025; 87635; 93005; U0003

== ENCOUNTER 2020-07-17 22:22 | Inpatient (IN) | payer MEDICARE, MEDICAID ==
[2020-07-17] MEDS ORDERED: Acetaminophen 500 MG TAB ONE (22:58)
[2020-07-17] MEDS ORDERED: Albuterol 200 PUFF (6.7GM INHALER) ONE (22:58)
[2020-07-17 23:00] LABS: #Lymphocytes 0.8 thou/uL (1.20-3.40); #Monocytes 0.7 thou/uL (0.11-0.59); #Neutrophils 4.9 thou/uL (1.40-6.50); %Basophils 0.2 % (0.0-1.0); %Lymphocytes 12.1 % (21.0-51.0); %Neutrophils 76.7 % (42.0-75.0); Hemoglobin 11.6 g/dL (12.0-16.0); Mean Corpuscular HGB CONC 31.4 g/dL (32.0-36.0); Mean Corpuscular Hemoglobin 27.7 pg (27.0-31.0); Mean Corpuscular Volume 88.2 fL (78.0-98.0); Mean Platelet Volume 7.4 fL (7.4-10.4); Platelet Count 177 thou/uL (130-400); RBC Distribution Width 13.9 % (11.5-14.5); Red Blood Cell (RBC) Count 4.19 mill/uL (4.20-5.40); White Blood Cell (WBC) Count 6.4 thou/uL (4.8-10.8)
[2020-07-17 23:22] LABS: ALT (SGPT) 8 U/L (8-55); AST (SGOT) 18 U/L (5-34); Albumin 3.6 g/dL (3.4-4.8); Alkaline Phosphatase 98 U/L (40-110); Anion Gap 11 mmol/L (10-20); BUN (Urea Nitrogen) 8 mg/dL (9.8-20.1); Bilirubin, Total 0.5 mg/dL (0.2-1.2); Calc. Creatinine Clearance 0 mL/min (70-130); Calcium 8.9 mg/dL (7.8-10.44); Carbon Dioxide 30 mmol/L (23-31); Chloride 102 mmol/L (98-107); Globulin 3.6 g/dL (2.4-3.5); Glucose 112 mg/dL (83-110); Potassium 4.1 mmol/L (3.5-5.1); Protein, Total 7.2 g/dL (5.8-8.1); Sodium 139 mmol/L (136-145)
[2020-07-18 00:13] LABS: SARS-CoV-2 NAA Rapid Test DETECTED (NotDetected)
[2020-07-18] MEDS ORDERED: Ondansetron ODT 4 MG TAB PO PRN (00:57)
[2020-07-18] MEDS ORDERED: Ondansetron PF 4 MG/2 ML Vial IVP PRN (00:57)
[2020-07-18 01:13] LABS: Troponin I Less than 0.010 ng/mL (< 0.028)
[2020-07-18] MEDS ORDERED: Pharmacy to Dose REMDESIVIR IVPB SCH (01:23)
[2020-07-18] MEDS ORDERED: Albuterol 200 PUFF (6.7GM INHALER) INH PRN (02:04)
[2020-07-18 04:14] VITALS: BMI 48.6
[2020-07-18 04:22] LABS: #Lymphocytes 0.9 thou/uL (1.20-3.40); #Monocytes 0.5 thou/uL (0.11-0.59); #Neutrophils 3.6 thou/uL (1.40-6.50); %Basophils 0.1 % (0.0-1.0); %Eosinophils 0.1 % (0.0-10.0); %Lymphocytes 17.7 % (21.0-51.0); %Monocytes 10.6 % (0.0-10.0); %Neutrophils 71.5 % (42.0-75.0); Mean Corpuscular HGB CONC 32.8 g/dL (32.0-36.0); Mean Corpuscular Hemoglobin 28.7 pg (27.0-31.0); Mean Corpuscular Volume 87.4 fL (78.0-98.0); Mean Platelet Volume 7.7 fL (7.4-10.4); Platelet Count 145 thou/uL (130-400); RBC Distribution Width 13.9 % (11.5-14.5); Red Blood Cell (RBC) Count 3.83 mill/uL (4.20-5.40)
[2020-07-18 04:39] LABS: Anion Gap 10 mmol/L (10-20); BUN (Urea Nitrogen) 8 mg/dL (9.8-20.1); Calc. Creatinine Clearance 99 mL/min (70-130); Calcium 8.7 mg/dL (7.8-10.44); Carbon Dioxide 30 mmol/L (23-31); Chloride 102 mmol/L (98-107); Glucose 114 mg/dL (83-110); Sodium 138 mmol/L (136-145)
[2020-07-18 04:46] LABS: Troponin I Less than 0.010 ng/mL (< 0.028)
[2020-07-18] MEDS: Albuterol 200 PUFF (6.7GM INHALER) INH SCH ×6 (05:28→21:29)
[2020-07-18] MEDS ORDERED: Polyethylene Glycol 3350 17 GM Packet PO PRN (07:36)
[2020-07-18] MEDS ORDERED: Iopamidol-370 76% 500 ML 1 ML ONE (08:47)
[2020-07-18] MEDS: Furosemide 40 MG TAB PO SCH (08:56)
[2020-07-18] MEDS: Aspirin 81 mg Enteric Coated Tablet PO SCH (08:56)
[2020-07-18] MEDS: Apixaban 5 MG TAB PO SCH ×2 (08:56→21:28)
[2020-07-18] MEDS: Cholecalciferol (Vitamin D3) 400 UNITS TAB PO SCH (08:56)
[2020-07-18] MEDS: Ascorbic Acid 500 mg Chewable Tablet PO SCH (08:56)
[2020-07-18] MEDS: Zinc Sulfate 220 MG CAP PO SCH (08:56)
[2020-07-18] MEDS ORDERED: Furosemide 20 MG TAB PO SCH (09:00)
[2020-07-18] MEDS ORDERED: REMDESIVIR (EUA) 200 MG in Sodium Chloride 0.9% 250 ML 210 ML IV SCH (12:00)
[2020-07-18] MEDS: HYDROcodone/Acetaminophen 5/325 mg Tablet PO PRN (13:47)
[2020-07-18] MEDS ORDERED: Amitriptyline HCl 10 MG TAB PO SCH (21:00)
[2020-07-18] MEDS: Acetaminophen 325 MG TAB PO PRN (21:28)
[2020-07-18] MEDS ORDERED: Cyclobenzaprine 10 MG TAB PO SCH (22:30)
[2020-07-19] MEDS: Acetaminophen 325 MG TAB PO PRN ×2 (01:38→18:08)
[2020-07-19] MEDS: Albuterol 200 PUFF (6.7GM INHALER) INH SCH ×6 (01:38→23:09)
[2020-07-19] MEDS ORDERED: Non-Formulary Item 1 EACH (Levothyroxine Sodium [Levothyroxine Sodium] 137 MCG Tablet) PO SCH (06:00)
[2020-07-19] MEDS: Levothyroxine Sodium 25 MCG TAB PO SCH (06:32)
[2020-07-19] MEDS: Levothyroxine Sodium 112 MCG TAB PO SCH (06:32)
[2020-07-19] MEDS: Aspirin 81 mg Enteric Coated Tablet PO SCH (08:44)
[2020-07-19] MEDS: Zinc Sulfate 220 MG CAP PO SCH (08:45)
[2020-07-19] MEDS: Cholecalciferol (Vitamin D3) 400 UNITS TAB PO SCH (08:45)
[2020-07-19] MEDS: Apixaban 5 MG TAB PO SCH ×2 (08:45→20:47)
[2020-07-19] MEDS: HYDROcodone/Acetaminophen 5/325 mg Tablet PO PRN ×3 (08:45→22:21)
[2020-07-19] MEDS: Ascorbic Acid 500 mg Chewable Tablet PO SCH (08:45)
[2020-07-19] MEDS: Furosemide 40 MG TAB PO SCH ×2 (08:45→08:58)
[2020-07-19] MEDS: REMDESIVIR (EUA) 100 MG in Sodium Chloride 0.9% 250 ML 230 ML IV SCH (11:46)
[2020-07-19] MEDS: Amitriptyline HCl 10 MG TAB PO SCH (21:05)
[2020-07-20] MEDS: HYDROcodone/Acetaminophen 5/325 mg Tablet PO PRN ×3 (03:16→18:19)
[2020-07-20] MEDS: Albuterol 200 PUFF (6.7GM INHALER) INH SCH ×6 (03:21→23:12)
[2020-07-20] MEDS: Levothyroxine Sodium 112 MCG TAB PO SCH (06:24)
[2020-07-20] MEDS: Levothyroxine Sodium 25 MCG TAB PO SCH (06:24)
[2020-07-20] MEDS: Apixaban 5 MG TAB PO SCH ×2 (07:52→21:04)
[2020-07-20] MEDS: Zinc Sulfate 220 MG CAP PO SCH (07:52)
[2020-07-20] MEDS: Aspirin 81 mg Enteric Coated Tablet PO SCH (07:52)
[2020-07-20] MEDS: Ascorbic Acid 500 mg Chewable Tablet PO SCH (07:52)
[2020-07-20] MEDS: Furosemide 40 MG TAB PO SCH (07:52)
[2020-07-20] MEDS: Cholecalciferol (Vitamin D3) 400 UNITS TAB PO SCH (07:54)
[2020-07-20] MEDS: REMDESIVIR (EUA) 100 MG in Sodium Chloride 0.9% 250 ML 230 ML IV SCH (11:30)
[2020-07-20] MEDS: cefTRIAXone\\ROCEPHIN 1 GM in Sodium Chloride 0.9% 100 ML IVPB SCH (19:50)
[2020-07-20] MEDS: Amitriptyline HCl 10 MG TAB PO SCH (21:05)
[2020-07-20] MEDS: guaiFENesin/Codeine 200 mg/20 mg 10 ml Cup PO PRN (21:17)
[2020-07-21] MEDS: Albuterol 200 PUFF (6.7GM INHALER) INH SCH ×6 (02:46→22:43)
[2020-07-21] MEDS: Levothyroxine Sodium 112 MCG TAB PO SCH (06:10)
[2020-07-21] MEDS: Levothyroxine Sodium 25 MCG TAB PO SCH (06:10)
[2020-07-21] MEDS: Furosemide 40 MG TAB PO SCH (08:28)
[2020-07-21] MEDS: Aspirin 81 mg Enteric Coated Tablet PO SCH (08:28)
[2020-07-21] MEDS: Zinc Sulfate 220 MG CAP PO SCH (08:28)
[2020-07-21] MEDS: Ascorbic Acid 500 mg Chewable Tablet PO SCH (08:28)
[2020-07-21] MEDS: Cholecalciferol (Vitamin D3) 400 UNITS TAB PO SCH (08:28)
[2020-07-21] MEDS: Apixaban 5 MG TAB PO SCH ×2 (08:28→20:33)
[2020-07-21] MEDS: HYDROcodone/Acetaminophen 5/325 mg Tablet PO PRN ×2 (08:29→20:33)
[2020-07-21] MEDS: REMDESIVIR (EUA) 100 MG in Sodium Chloride 0.9% 250 ML 230 ML IV SCH (13:16)
[2020-07-21] MEDS: methylPREDNISolone Sod Succ 40 MG VIAL IVP SCH ×2 (18:23→23:23)
[2020-07-21] MEDS: cefTRIAXone\\ROCEPHIN 1 GM in Sodium Chloride 0.9% 100 ML IVPB SCH (20:29)
[2020-07-21] MEDS: Amitriptyline HCl 10 MG TAB PO SCH (20:33)
[2020-07-21] MEDS: guaiFENesin/Codeine 200 mg/20 mg 10 ml Cup PO PRN (20:34)
[2020-07-22] MEDS: Albuterol 200 PUFF (6.7GM INHALER) INH SCH ×4 (02:07→15:48)
[2020-07-22] MEDS: HYDROcodone/Acetaminophen 5/325 mg Tablet PO PRN (05:02)
[2020-07-22] MEDS: Levothyroxine Sodium 112 MCG TAB PO SCH (05:02)
[2020-07-22] MEDS: methylPREDNISolone Sod Succ 40 MG VIAL IVP SCH ×2 (05:02→12:06)
[2020-07-22] MEDS: Levothyroxine Sodium 25 MCG TAB PO SCH (05:02)
[2020-07-22 07:26] VITALS: BP 162/85; TEMP 97.7
[2020-07-22] MEDS: Apixaban 5 MG TAB PO SCH (08:56)
[2020-07-22] MEDS: Aspirin 81 mg Enteric Coated Tablet PO SCH (08:56)
[2020-07-22] MEDS: Furosemide 40 MG TAB PO SCH (08:56)
[2020-07-22] MEDS: Ascorbic Acid 500 mg Chewable Tablet PO SCH (08:56)
[2020-07-22] MEDS: Zinc Sulfate 220 MG CAP PO SCH (08:56)
[2020-07-22] MEDS: Cholecalciferol (Vitamin D3) 400 UNITS TAB PO SCH (08:56)
[2020-07-22] MEDS: REMDESIVIR (EUA) 100 MG in Sodium Chloride 0.9% 250 ML 230 ML IV SCH (12:06)
== END 2020-07-22 18:05 | disposition home or self-care (01) | DRG 871 ==
LOC: ERS 22:22 → T4-B 07-18 00:39
PROVIDERS: ADMIT Student in an Organized Health Care Education/Training Program; ATTEND Internal Medicine
PROC: 8E0ZXY6 Isolation (ICD-10-PCS; principal; 2020-07-18)
PROC: XW033E5 Introduction of Remdesivir Anti-infective into Peripheral Vein, Percutaneous Approach, New Technology Group 5 (ICD-10-PCS; 2020-07-18)
DX: A41.89 Other specified sepsis (principal); U07.1 COVID-19; J12.82 Pneumonia due to coronavirus disease 2019; J96.01 Acute respiratory failure with hypoxia; E03.9 Hypothyroidism, unspecified; K21.9 Gastro-esophageal reflux disease without esophagitis; I10 Essential (primary) hypertension; G47.33 Obstructive sleep apnea (adult) (pediatric); I35.1 Nonrheumatic aortic (valve) insufficiency; F41.9 Anxiety disorder, unspecified; D64.9 Anemia, unspecified; Z88.8 Allergy status to other drugs, medicaments and biological substances; Z98.84 Bariatric surgery status; Z90.710 Acquired absence of both cervix and uterus; Z90.49 Acquired absence of other specified parts of digestive tract; Z79.82 Long term (current) use of aspirin; Z79.890 Hormone replacement therapy; Z79.899 Other long term (current) drug therapy; Z98.51 Tubal ligation status; Z86.711 Personal history of pulmonary embolism; Z79.01 Long term (current) use of anticoagulants; E78.5 Hyperlipidemia, unspecified
CPT/HCPCS: 36415; 71045; 71275; 80048; 80053; 82728; 83605; 84484; 85025; 85379; 86140; 87040; 93005; J0696; J2920; J3490; J7050; Q9967; U0002

== ENCOUNTER 2020-07-27 18:37 | Inpatient (IN) | payer MEDICARE, MEDICAID ==
[~2020-07-27 18:37] MED LIST: Iopamidol-370 76% 500 ML 1 ML ONE
[2020-07-27] MEDS ORDERED: Aspirin Chewable 81 MG TAB ONE (19:09)
[2020-07-27 19:40] LABS: #Basophils 0.1 thou/uL (0.0-0.2); #Lymphocytes 1.3 thou/uL (1.20-3.40); #Monocytes 0.8 thou/uL (0.11-0.59); #Neutrophils 5.8 thou/uL (1.40-6.50); %Basophils 1.5 % (0.0-1.0); %Monocytes 10.1 % (0.0-10.0); %Neutrophils 72.4 % (42.0-75.0); Hemoglobin 12.2 g/dL (12.0-16.0); Mean Corpuscular HGB CONC 31.3 g/dL (32.0-36.0); Mean Corpuscular Hemoglobin 27.3 pg (27.0-31.0); Mean Corpuscular Volume 87.5 fL (78.0-98.0); Mean Platelet Volume 8.5 fL (7.4-10.4); Platelet Count 204 thou/uL (130-400); Red Blood Cell (RBC) Count 4.46 mill/uL (4.20-5.40)
[2020-07-27] MEDS ORDERED: Enoxaparin Sodium 60 MG/0.6 ML SYRINGE ONE (19:44)
[2020-07-27 20:21] LABS: ALT (SGPT) 10 U/L (8-55); AST (SGOT) 24 U/L (5-34); Albumin 3.3 g/dL (3.4-4.8); Alkaline Phosphatase 81 U/L (40-110); Anion Gap 15 mmol/L (10-20); BUN (Urea Nitrogen) 17 mg/dL (9.8-20.1); Bilirubin, Total 0.9 mg/dL (0.2-1.2); CK (CPK) 44 U/L (29-168); Calc. Creatinine Clearance 0 mL/min (70-130); Carbon Dioxide 31 mmol/L (23-31); Chloride 96 mmol/L (98-107); Globulin 3.5 g/dL (2.4-3.5); Glucose 101 mg/dL (83-110); Lipase 32 U/L (8-78); Potassium 4.4 mmol/L (3.5-5.1); Protein, Total 6.8 g/dL (5.8-8.1); Sodium 138 mmol/L (136-145)
[2020-07-28] MEDS ORDERED: Ondansetron PF 4 MG/2 ML Vial IVP PRN ×2 (00:45→05:25)
[2020-07-28] MEDS ORDERED: Ondansetron ODT 4 MG TAB SL PRN (00:45)
[2020-07-28] MEDS ORDERED: Sodium Chloride 0.9% 1,000 ML IV SCH (00:45)
[2020-07-28] MEDS: Acetaminophen 325 MG TAB PO PRN (02:16)
[2020-07-28] MEDS ORDERED: Acetaminophen 325 MG TAB PO PRN (05:25)
[2020-07-28] MEDS ORDERED: Polyethylene Glycol 3350 17 GM Packet PO PRN (05:29)
[2020-07-28 05:54] LABS: #Basophils 0.1 thou/uL (0.0-0.2); #Lymphocytes 1.4 thou/uL (1.20-3.40); #Monocytes 0.8 thou/uL (0.11-0.59); #Neutrophils 4.3 thou/uL (1.40-6.50); %Basophils 1.6 % (0.0-1.0); %Neutrophils 65.4 % (42.0-75.0); Hemoglobin 11.5 g/dL (12.0-16.0); Mean Corpuscular HGB CONC 30.7 g/dL (32.0-36.0); Mean Corpuscular Hemoglobin 27.1 pg (27.0-31.0); Mean Corpuscular Volume 88.1 fL (78.0-98.0); Mean Platelet Volume 8.5 fL (7.4-10.4); Platelet Count 197 thou/uL (130-400); RBC Distribution Width 14.2 % (11.5-14.5); Red Blood Cell (RBC) Count 4.25 mill/uL (4.20-5.40); White Blood Cell (WBC) Count 6.6 thou/uL (4.8-10.8)
[2020-07-28 06:17] LABS: Anion Gap 11 mmol/L (10-20); BUN (Urea Nitrogen) 16 mg/dL (9.8-20.1); Calc. Creatinine Clearance 0 mL/min (70-130); Carbon Dioxide 31 mmol/L (23-31); Chloride 99 mmol/L (98-107); Glucose 125 mg/dL (83-110); Potassium 3.4 mmol/L (3.5-5.1); Sodium 138 mmol/L (136-145)
[2020-07-28] MEDS ORDERED: Levothyroxine Sodium 25 MCG TAB PO SCH (06:45)
[2020-07-28] MEDS ORDERED: Levothyroxine Sodium 112 MCG TAB PO SCH (06:45)
[2020-07-28 06:46] VITALS: BMI 46.5
[2020-07-28] MEDS: Dexamethasone 4 mg/ml Vial SLOW IVP SCH (08:30)
[2020-07-28] MEDS: Furosemide 20 MG TAB PO SCH (08:30)
[2020-07-28] MEDS: Famotidine 20 MG TAB PO SCH ×2 (08:30→20:32)
[2020-07-28] MEDS: Zinc Sulfate 220 MG CAP PO SCH (08:30)
[2020-07-28] MEDS: Apixaban 5 MG TAB PO SCH ×2 (08:30→20:31)
[2020-07-28] MEDS: Ascorbic Acid 500 mg Chewable Tablet PO SCH (08:32)
[2020-07-28] MEDS: Benzonatate 100 MG CAP PO PRN ×2 (08:32→20:31)
[2020-07-28] MEDS ORDERED: Potassium Chloride 20 MEQ TAB PO SCH (08:45)
[2020-07-28] MEDS ORDERED: Colchicine 0.6 MG TAB PO SCH (09:00)
[2020-07-28] MEDS ORDERED: Enoxaparin Sodium 40 MG/0.4 ML SYRINGE SC SCH (09:00)
[2020-07-29] MEDS: Levothyroxine Sodium 112 MCG TAB PO SCH (05:48)
[2020-07-29] MEDS: Levothyroxine Sodium 25 MCG TAB PO SCH (05:48)
[2020-07-29 05:50] LABS: #Lymphocytes 0.7 thou/uL (1.20-3.40); #Monocytes 0.6 thou/uL (0.11-0.59); #Neutrophils 5.2 thou/uL (1.40-6.50); %Eosinophils 0.1 % (0.0-10.0); %Lymphocytes 11.4 % (21.0-51.0); %Monocytes 8.8 % (0.0-10.0); %Neutrophils 79.7 % (42.0-75.0); Hemoglobin 11.5 g/dL (12.0-16.0); Mean Corpuscular HGB CONC 30.3 g/dL (32.0-36.0); Mean Corpuscular Hemoglobin 27.1 pg (27.0-31.0); Mean Corpuscular Volume 89.5 fL (78.0-98.0); Mean Platelet Volume 8.8 fL (7.4-10.4); Platelet Count 238 thou/uL (130-400); RBC Distribution Width 13.9 % (11.5-14.5); Red Blood Cell (RBC) Count 4.25 mill/uL (4.20-5.40); White Blood Cell (WBC) Count 6.5 thou/uL (4.8-10.8)
[2020-07-29 06:12] LABS: Anion Gap 13 mmol/L (10-20); BUN (Urea Nitrogen) 21 mg/dL (9.8-20.1); Calc. Creatinine Clearance 91 mL/min (70-130); Calcium 8.7 mg/dL (7.8-10.44); Carbon Dioxide 28 mmol/L (23-31); Chloride 101 mmol/L (98-107); Glucose 155 mg/dL (83-110); Potassium 4.3 mmol/L (3.5-5.1); Sodium 138 mmol/L (136-145)
[2020-07-29] MEDS: Furosemide 20 MG TAB PO SCH (08:27)
[2020-07-29] MEDS: Famotidine 20 MG TAB PO SCH ×2 (08:27→20:21)
[2020-07-29] MEDS: Dexamethasone 4 mg/ml Vial SLOW IVP SCH (08:28)
[2020-07-29] MEDS: Benzonatate 100 MG CAP PO PRN (08:28)
[2020-07-29] MEDS: Apixaban 5 MG TAB PO SCH ×2 (08:28→20:21)
[2020-07-29] MEDS: Ascorbic Acid 500 mg Chewable Tablet PO SCH (08:28)
[2020-07-29] MEDS: Zinc Sulfate 220 MG CAP PO SCH (08:28)
[2020-07-29] MEDS: Acetaminophen 325 MG TAB PO PRN (08:41)
[2020-07-30] MEDS: Levothyroxine Sodium 112 MCG TAB PO SCH (05:49)
[2020-07-30] MEDS: Levothyroxine Sodium 25 MCG TAB PO SCH (05:49)
[2020-07-30 06:13] LABS: #Basophils 0.1 thou/uL (0.0-0.2); #Monocytes 0.6 thou/uL (0.11-0.59); #Neutrophils 6.6 thou/uL (1.40-6.50); %Basophils 1.2 % (0.0-1.0); %Eosinophils 0.1 % (0.0-10.0); %Lymphocytes 11.5 % (21.0-51.0); %Monocytes 7.7 % (0.0-10.0); %Neutrophils 79.5 % (42.0-75.0); Hemoglobin 11.5 g/dL (12.0-16.0); Mean Corpuscular HGB CONC 31.8 g/dL (32.0-36.0); Mean Corpuscular Hemoglobin 28.2 pg (27.0-31.0); Mean Corpuscular Volume 88.7 fL (78.0-98.0); Mean Platelet Volume 9.2 fL (7.4-10.4); Platelet Count 198 thou/uL (130-400); White Blood Cell (WBC) Count 8.3 thou/uL (4.8-10.8)
[2020-07-30 06:40] LABS: Anion Gap 10 mmol/L (10-20); BUN (Urea Nitrogen) 22 mg/dL (9.8-20.1); Calc. Creatinine Clearance 100 mL/min (70-130); Calcium 8.8 mg/dL (7.8-10.44); Carbon Dioxide 34 mmol/L (23-31); Chloride 100 mmol/L (98-107); Glucose 122 mg/dL (83-110); Potassium 4.4 mmol/L (3.5-5.1); Sodium 140 mmol/L (136-145)
[2020-07-30] MEDS: Furosemide 20 MG TAB PO SCH (08:54)
[2020-07-30] MEDS: Benzonatate 100 MG CAP PO PRN ×2 (08:54→14:59)
[2020-07-30] MEDS: Apixaban 5 MG TAB PO SCH ×2 (08:54→19:51)
[2020-07-30] MEDS: Ascorbic Acid 500 mg Chewable Tablet PO SCH (08:54)
[2020-07-30] MEDS: Famotidine 20 MG TAB PO SCH ×2 (08:55→19:51)
[2020-07-30] MEDS: Dexamethasone 4 mg/ml Vial SLOW IVP SCH (08:55)
[2020-07-30] MEDS: Zinc Sulfate 220 MG CAP PO SCH (08:55)
[2020-07-30] MEDS ORDERED: guaiFENesin/Codeine 200 mg/20 mg 10 ml Cup PO PRN (08:58)
[2020-07-30] MEDS ORDERED: Sodium Chloride 0.65% Nasal 44 ML BOT EA NARE PRN (10:30)
[2020-07-30] MEDS ORDERED: hydrALAZINE 20 MG/ML VIAL SLOW IVP PRN (10:30)
[2020-07-30] MEDS ORDERED: Loratadine 10 MG TAB PO PRN (10:30)
[2020-07-30] MEDS ORDERED: Senokot S 8.6-50 MG TAB PO PRN (10:30)
[2020-07-30] MEDS ORDERED: Calcium Carbonate 500 MG ChewTAB PO PRN (10:30)
[2020-07-30] MEDS ORDERED: Bisacodyl 5 MG TAB PO PRN (10:30)
[2020-07-30] MEDS ORDERED: GUAIFENESIN SF SOLN 200 MG/10 ML UDCUP PO PRN (10:30)
[2020-07-30] MEDS ORDERED: HYDROcodone/Acetaminophen 5/325 mg Tablet PO PRN (10:30)
[2020-07-30] MEDS ORDERED: Cepastat Lozenges 1 LOZ PO PRN (10:30)
[2020-07-30] MEDS ORDERED: Ondansetron ODT 4 MG TAB PO PRN (10:30)
[2020-07-30] MEDS ORDERED: Albuterol Sulfate 2.5 mg/3 ml Neb NEB SCH (13:00)
[2020-07-30] MEDS: Albuterol 200 PUFF (6.7GM INHALER) INH SCH (19:52)
[2020-07-30] MEDS: Mometasone 200 MCG/Formoterol 5 MCG 120 PUFF INHALER INH SCH (19:52)
[2020-07-31] MEDS: Albuterol 200 PUFF (6.7GM INHALER) INH SCH ×3 (00:38→13:33)
[2020-07-31] MEDS: Mometasone 200 MCG/Formoterol 5 MCG 120 PUFF INHALER INH SCH (05:41)
[2020-07-31] MEDS: Levothyroxine Sodium 112 MCG TAB PO SCH (05:41)
[2020-07-31] MEDS: Levothyroxine Sodium 25 MCG TAB PO SCH (05:41)
[2020-07-31 06:31] LABS: #Basophils 0.1 thou/uL (0.0-0.2); #Monocytes 0.5 thou/uL (0.11-0.59); #Neutrophils 6.6 thou/uL (1.40-6.50); %Basophils 1.1 % (0.0-1.0); %Eosinophils 0.1 % (0.0-10.0); %Lymphocytes 12.6 % (21.0-51.0); %Monocytes 5.5 % (0.0-10.0); %Neutrophils 80.7 % (42.0-75.0); Hemoglobin 11.5 g/dL (12.0-16.0); Mean Corpuscular HGB CONC 30.8 g/dL (32.0-36.0); Mean Corpuscular Hemoglobin 27.6 pg (27.0-31.0); Mean Corpuscular Volume 89.5 fL (78.0-98.0); Mean Platelet Volume 8.5 fL (7.4-10.4); Platelet Count 267 thou/uL (130-400); RBC Distribution Width 13.8 % (11.5-14.5); Red Blood Cell (RBC) Count 4.16 mill/uL (4.20-5.40); White Blood Cell (WBC) Count 8.2 thou/uL (4.8-10.8)
[2020-07-31 06:48] LABS: Anion Gap 11 mmol/L (10-20); BUN (Urea Nitrogen) 26 mg/dL (9.8-20.1); Calc. Creatinine Clearance 93 mL/min (70-130); Calcium 8.8 mg/dL (7.8-10.44); Carbon Dioxide 32 mmol/L (23-31); Chloride 102 mmol/L (98-107); Glucose 121 mg/dL (83-110); Potassium 4.3 mmol/L (3.5-5.1); Sodium 141 mmol/L (136-145)
[2020-07-31] MEDS: Ascorbic Acid 500 mg Chewable Tablet PO SCH (08:55)
[2020-07-31] MEDS: Furosemide 20 MG TAB PO SCH (08:55)
[2020-07-31] MEDS: Famotidine 20 MG TAB PO SCH (08:55)
[2020-07-31] MEDS: Apixaban 5 MG TAB PO SCH (08:55)
[2020-07-31] MEDS: Benzonatate 100 MG CAP PO PRN (08:55)
[2020-07-31] MEDS: Dexamethasone 4 mg/ml Vial SLOW IVP SCH (08:56)
[2020-07-31] MEDS: Zinc Sulfate 220 MG CAP PO SCH (08:56)
[2020-07-31 12:07] VITALS: BP 123/81; TEMP 99.1
== END 2020-07-31 16:05 | disposition home or self-care (01) | DRG 177 ==
LOC: ERS 18:37 → T4-A 22:30
PROVIDERS: ADMIT Internal Medicine; ATTEND Hospitalist
PROC: 8E0ZXY6 Isolation (ICD-10-PCS; principal; 2020-07-27)
DX: U07.1 COVID-19 (principal); J12.82 Pneumonia due to coronavirus disease 2019; J96.01 Acute respiratory failure with hypoxia; Z68.42 Body mass index [BMI] 45.0-49.9, adult; J44.0 Chronic obstructive pulmonary disease with (acute) lower respiratory infection; E03.9 Hypothyroidism, unspecified; K21.9 Gastro-esophageal reflux disease without esophagitis; I10 Essential (primary) hypertension; F41.9 Anxiety disorder, unspecified; G47.33 Obstructive sleep apnea (adult) (pediatric); E66.01 Morbid (severe) obesity due to excess calories; Z88.8 Allergy status to other drugs, medicaments and biological substances; Z79.890 Hormone replacement therapy; Z79.82 Long term (current) use of aspirin; Z79.899 Other long term (current) drug therapy; Z90.710 Acquired absence of both cervix and uterus; Z98.84 Bariatric surgery status; Z90.49 Acquired absence of other specified parts of digestive tract; Z86.718 Personal history of other venous thrombosis and embolism; Z79.01 Long term (current) use of anticoagulants; Z86.711 Personal history of pulmonary embolism; Z79.51 Long term (current) use of inhaled steroids; Z83.6 Family history of other diseases of the respiratory system; Z98.890 Other specified postprocedural states
CPT/HCPCS: 36415; 71045; 71275; 80048; 80053; 82550; 82728; 83690; 83880; 84484; 85025; 85379; 86140; 93005; 96365; 96366; 96372; J1100; J1650; J1956; Q9967